=== PATIENT | male | born 1995 | race Two or more races ===

== ENCOUNTER 2017-10-14 12:09 | Emergency (ER) | payer OTHER ==
[2017-10-14] MEDS: KETOROLAC 60 MG/2 ML VIAL (J1885) IM (12:51)
== END 2017-10-14 14:43 | disposition home or self-care (01) ==
LOC: M ED 12:09
DX: M54.89 Other dorsalgia (principal); G89.29 Other chronic pain; F17.210 Nicotine dependence, cigarettes, uncomplicated
CPT/HCPCS: J1885

== ENCOUNTER 2018-04-29 15:28 | Emergency (ER) | payer OTHER ==
[2018-04-29] MEDS: ACETAMINOPHEN TAB 650MG DOSE (2X325MG) PO (17:24)
[2018-04-29] MEDS: LISSAMINE GREEN OPHTH 1.5 MG STRIP OS (17:25)
[2018-04-29] MEDS: TETRACAINE 0.5% OPHTH SOLN 4ML OS (17:25)
[2018-04-29] MEDS: ERYTHROMYCIN OPHTH OINT OS (17:58)
== END 2018-04-29 18:06 | disposition home or self-care (01) ==
LOC: M ED 15:28
DX: S05.02XA Injury of conjunctiva and corneal abrasion without foreign body, left eye, initial encounter (principal); W51.XXXA Accidental striking against or bumped into by another person, initial encounter; Y92.89 Other specified places as the place of occurrence of the external cause; Y93.61 Activity, american tackle football
CPT/HCPCS: 99283